=== PATIENT | male | born 1975 | race Two or more races ===

== ENCOUNTER 2023-01-04 21:25 | Emergency (ER) | payer MEDICAID, OTHER ==
[~2023-01-04] VITALS: Ht 167.6 cm; Wt 70.3 kg
[2023-01-04] MEDS ORDERED: LABETALOL HCL IV 100MG VIAL ONE (21:42)
[2023-01-04] MEDS ORDERED: LABETALOL HCL IV 100MG VIAL IV ONE ×2 (22:00→22:30)
[2023-01-04 22:05] LABS: CALCIUM, SERUM 8.4 mg/dL (8.5-10.1); CREATININE 1.1 mg/dL (0.6-1.3); POTASSIUM 3.6 mmol/L (3.5-5.1)
[2023-01-04 22:55] VITALS: BP 175/84
== END 2023-01-05 00:01 | disposition home or self-care (01) ==
LOC: ER 21:28
DX: I10 Essential (primary) hypertension (principal); E78.5 Hyperlipidemia, unspecified; F17.200 Nicotine dependence, unspecified, uncomplicated
CPT/HCPCS: 99285; 96374; 93005 ×2; 96376; 80048; 36415; J3490